=== PATIENT | female | born 1940 | race African-American/Black ===

== ENCOUNTER 2016-06-29 23:24 | Emergency (ER) | payer MEDICARE ==
[~2016-06-29] VITALS: Ht 172.7 cm; Wt 86.2 kg
[2016-06-29] MEDS ORDERED: VITAMIN D1000 UNI1 ORAL (23:36)
[2016-06-29] MEDS ORDERED: SENSIPAR30 MG ORAL (23:36)
[2016-06-29] MEDS ORDERED: ISOSORBIDE MONO30 M1 PO (23:36)
[2016-06-29] MEDS ORDERED: SENNA8.6 M2 PO (23:36)
[2016-06-29] MEDS ORDERED: AMLODIPINE BESYL5 MG ORAL (23:36)
[2016-06-29] MEDS ORDERED: METOPROLOL TAR100 MG ORAL (23:36)
[2016-06-29] MEDS ORDERED: CLOPIDOGREL75 MG ORAL (23:36)
[2016-06-29] MEDS ORDERED: ATORVASTATIN CA40 MG ORAL (23:36)
[2016-06-29 23:41] VITALS: BP 147/54
[2016-06-29 23:54] LABS: BASOPHILS % (AUTO) 0.8 % (0.0-2.0); EOSINOPHILS % (AUTO) 2.3 % (0.0-3.0); LYMPHOCYTES % (AUTO) 21.3 % (20.0-45.0); MEAN CORPUSCULAR HEMOGLOBIN 31.3 PG (27.0-31.0); MEAN CORPUSCULAR HGB CONC 34.1 G/DL (32.0-36.0); MEAN CORPUSCULAR VOLUME 92 FL (80-99); MEAN PLATELET VOLUME 6.4 FL (6.5-10.1); MONOCYTES % (AUTO) 13.6 % (1.0-10.0); NEUTROPHILS % (AUTO) 61.9 % (45.0-75.0); PLATELET COUNT 250 K/UL (150-450); RED BLOOD COUNT 3.51 M/UL (4.20-5.40); RED CELL DISTRIBUTION WIDTH 14.6 % (11.6-14.8); WHITE BLOOD COUNT 6.6 K/UL (4.8-10.8)
[2016-06-30 01:03] LABS: ALANINE AMINOTRANSFERASE 10 U/L (3-33); ALBUMIN/GLOBULIN RATIO 1.1 (1.0-2.7); ANION GAP 19 (5-15); ASPARTATE AMINO TRANSFERASE 20 U/L (5-40); CALCIUM 9.7 mg/dL (8.6-10.2); CARBON DIOXIDE 28 mEQ/L (20-30); CHLORIDE 93 mEQ/L (98-107); HEMOLYSIS 4; POTASSIUM 3.6 mEQ/L (3.4-4.9); SODIUM 140 mEQ/L (135-145); TOTAL PROTEIN 7.6 g/dL (6.6-8.7)
[2016-06-30 01:07] VITALS: BP 144/60
[2016-06-30 01:07] LABS: TROPONIN I 0.67 ng/mL (<=0.30)
[2016-06-30 01:13] LABS: CKMB 12.1 ng/mL (< 3.8)
[2016-06-30] MEDS ORDERED: Enoxaparin 80mg Inj SUBQ ONE (01:15)
--- NOTE | 2016-06-30 01:45 | Emergency Room Report ---
History of Present Illness General Chief Complaint: Chest Pain Source: Patient, Medical Record Present Illness HPI This is a 76-year-old female with history dementia. She has a history of hypertension and renal disease. She was on dialysis in the past. But no longer. History limited because of patient's short-term memory loss. She presents with chief complaint of chest pain. She was sitting down and developed substernal chest pain going to her left chest. No nausea no vomiting. No shortness of breath. retirement called 911. EMS gave her aspirin nitroglycerin and she is pain-free now. Denies any other complaint. Allergies: Coded Allergies: NSAIDS (NON-STEROIDAL ANTI-INFLAMMA (Verified Allergy, Unknown, 06/29/16) PENICILLINS (Verified Allergy, Unknown, 06/29/16) Patient History Past Medical History: see triage record, old chart reviewed, HTN, CAD, AFib, renal disease Past Surgical History: other Pertinent Family History: none Social History: Denies: smoking Now: No Immunizations: other Reviewed Nursing Documentation: PMH: Agreed, PSxH: Agreed Nursing Documentation-PMH Hx Cardiac Problems: Yes - old OK,HYPERLIPIDEMIA,GOUT Hx Hypertension: Yes Hx Diabetes: Yes Hx Dialysis: Yes - ESRD History Of Psychiatric Problem: Yes - DEMENTIA Hx Cerebrovascular Accident: Yes Review of Systems Eye: Denies: blurred vision, eye pain ENT: Denies: ear pain, nose congestion, throat swelling Respiratory: Denies: cough, shortness of breath Cardiovascular: Reports: chest pain, Denies: palpitations Gastrointestinal: Denies: abdominal pain, diarrhea, nausea, vomiting Musculoskeletal: Denies: back pain, joint pain Skin: Denies: rash Neurological: Denies: headache, numbness Endocrine: Denies: increased thirst, increased urine Hematologic/Lymphatic: Denies: easy bruising All Other Systems: negative except mentioned in HPI Physical Exam Vital Signs Date Time Temp Pulse Resp B/P Pulse Ox O2 Delivery O2 Flow Rate FiO2 06/29/16 23:24 98.2 82 16 147/54 99 Room Air vitals unremarkable Sp02 EP Interpretation: reviewed, normal General Appearance: well appearing, no apparent distress, alert Head: normocephalic, atraumatic Eyes: bilateral eye EOMI, bilateral eye PERRL ENT: hearing grossly normal, normal pharynx Neck: full range of motion, supple, no meningismus Respiratory: chest non-tender, lungs clear, normal breath sounds Cardiovascular #1: regular rate, rhythm, no murmur Gastrointestinal: normal bowel sounds, non tender, no mass, no organomegaly, no bruit, non-distended Musculoskeletal: back normal, gait/station normal, normal range of motion Psychiatric: mood/affect normal Skin: warm/dry Medical Decision Making Diagnostic Impression: Primary Impression: NSTEMI, initial episode of care Additional Impressions: Chronic kidney disease (CKD) Qualified Codes: N18.5 - Chronic kidney disease, stage 5 Dementia Qualified Codes: G30.1 - Alzheimer's disease with late onset; F02.80 - Dementia in other diseases classified elsewhere without behavioral disturbance Anemia Qualified Codes: D64.9 - Anemia, unspecified ER Course Patient presents with chest pain. By time she got here she is pain-free. Troponin is positive. She also has a kidney disease. She received aspirin and nitroglycerin I EMS. They gave her a dose of Lovenox here. I discussed this with her [facility] doctor who then discussed it with the crew boat operator. We'll repeat troponin. It continues to be elevated, she would need ago [place] for emergent catheterization. If not she will probably be transferred to [facility]. Laboratory Tests Test 06/29/16 23:32 White Blood Count 6.6 K/UL (4.8-10.8) Red Blood Count 3.51 M/UL (4.20-5.40) L Hemoglobin 11.0 G/DL (12.0-16.0) L Hematocrit 32.2 % (37.0-47.0) L Mean Corpuscular Volume 92 FL (80-99) Mean Corpuscular Hemoglobin 31.3 PG (27.0-31.0) H Mean Corpuscular Hemoglobin Concent 34.1 G/DL (32.0-36.0) Red Cell Distribution Width 14.6 % (11.6-14.8) Platelet Count 250 K/UL (150-450) Mean Platelet Volume 6.4 FL (6.5-10.1) L Neutrophils (%) (Auto) 61.9 % (45.0-75.0) Lymphocytes (%) (Auto) 21.3 % (20.0-45.0) Monocytes (%) (Auto) 13.6 % (1.0-10.0) H Eosinophils (%) (Auto) 2.3 % (0.0-3.0) Basophils (%) (Auto) 0.8 % (0.0-2.0) Sodium Level 140 mEQ/L (135-145) Potassium Level 3.6 mEQ/L (3.4-4.9) Chloride Level 93 mEQ/L (98-107) L Carbon Dioxide Level 28 mEQ/L (20-30) Anion Gap 19 (5-15) H Blood Urea Nitrogen 44 mg/dL (7-23) H Creatinine 6.0 mg/dL (0.5-0.9) H Estimat Glomerular Filtration Rate mL/min (>60) Glucose Level 149 mg/dL (74-106) H Calcium Level 9.7 mg/dL (8.6-10.2) Total Bilirubin 0.4 mg/dL (0.0-1.2) Aspartate Amino Transf (AST/SGOT) 20 U/L (5-40) Alanine Aminotransferase (ALT/SGPT) 10 U/L (3-33) Alkaline Phosphatase 57 U/L (35-104) Total Creatine Kinase 199 U/L (26-140) H Creatine Kinase MB 12.1 ng/mL (< 3.8) H Creatine Kinase MB Relative Index 6.0 Troponin I 0.67 ng/mL (<=0.30) *H Total Protein 7.6 g/dL (6.6-8.7) Albumin 4.1 g/dL (3.5-5.2) Globulin 3.5 g/dL Albumin/Globulin Ratio 1.1 (1.0-2.7) Lab Results Impression labs with elevated troponin EKG Diagnostic Results Rate: normal Rhythm: NSR ST Segments: no acute changes Rhythm Strip Diag. Results EP Interpretation: yes Rate: 80 Rhythm: NSR, no PVC's, no ectopy Chest X-Ray Diagnostic Results EP Interpretation: Yes Findings: no consolidation, no effusion, no pneumothorax, no acute cardiopulmonary disease Number of Views: 1 Last Vital Signs Date Time Temp Pulse Resp B/P Pulse Ox O2 Delivery O2 Flow Rate FiO2 06/30/16 01:07 98.2 74 14 144/60 100 Room Air Status: improved [facility] Condition: Serious SHAUNA PUENTES M.D. Jun 30, 2016 01:45
[2016-06-30 02:33] LABS: TROPONIN I 1.65 ng/mL (<=0.30)
[2016-06-30 03:37] VITALS: BP 151/65
[2016-06-30 05:07] VITALS: BP 170/80
[2016-06-30 05:08] VITALS: BP 170/80
--- NOTE | 2016-06-30 10:19 | Diagnostic Imaging Report ---
Clinical history: Chest pain. Technique: Portable AP chest radiograph was obtained. Comparison: None Findings: The lungs are well inflated and clear. There is no pneumonia or pulmonary edema. There is no pleural effusion or pneumothorax. The cardiac and mediastinal silhouettes are normal in appearance. Chronic fracture deformities of the left ribs noted. Atherosclerotic calcification of the aortic arch and proximal descending thoracic aorta is identified. Impression: 1. No evidence of pneumonia or pulmonary edema. 2. Atherosclerotic vascular disease. 3. Old left-sided rib fractures.
--- NOTE | 2016-06-30 18:44 | Cardiology Report ---
APPROVED REPORT EKG Measurement Heart [id number] Normal sinus rhythm Possible Left atrial enlargement T wave abnormality, consider inferior ischemia Prolonged QT Abnormal ECG
== END 2016-06-30 05:12 | disposition short-term general hospital (02) ==
LOC: EDBD 23:24 → EMR 06-30 02:34
DX: I21.4 Non-ST elevation (NSTEMI) myocardial infarction (principal); N18.5 Chronic kidney disease, stage 5; G30.1 Alzheimer's disease with late onset; D64.9 Anemia, unspecified; Z88.6 Allergy status to analgesic agent; Z88.0 Allergy status to penicillin; I10 Essential (primary) hypertension; E11.9 Type 2 diabetes mellitus without complications; F03.90 Unspecified dementia, unspecified severity, without behavioral disturbance, psychotic disturbance, mood disturbance, and anxiety
CPT/HCPCS: 36415; 71010; 80053; 82550; 82553; 84484; 85025; 93005; 96372; 99285; J1650